=== PATIENT | female | born 1965 | race Caucasian/White ===

== ENCOUNTER 2020-04-08 19:57 | Observation (INO) ==
[2020-04-08] MEDS ORDERED: Naloxone 0.4 MG/ML INJ IVP PRN (21:24)
[2020-04-08] MEDS ORDERED: Ondansetron 4 MG/2 ML VIAL IVP PRN (21:24)
[2020-04-08] MEDS ORDERED: D5% in Water 1,000 ML IVC PRN (21:32)
[2020-04-08] MEDS ORDERED: *HR* Dextrose 50 % in Water (Vial) 50 ML VIAL IVP PRN (21:32)
[2020-04-08] MEDS ORDERED: Dextrose Gel 15 GM/37.5 ML TUBE PO PRN ×2 (21:32)
[2020-04-09] MEDS: Insulin LISPRO 300 UNITS/3 ML VIAL SUBQ SCH ×4 (00:17→17:49)
[2020-04-09 01:49] LABS: Basophils % 0.4 %; Eosinophils # 0.2 K/mcL (0.0-0.6); Eosinophils % 2.5 %; Hematocrit 38.4 % (35.3-44.9); Hemoglobin 12.6 g/dL (11.5-15.4); Immature Granulocytes % 0.3 % (0-4); Lymphocytes # 3.1 K/mcL (0.6-4.6); Lymphocytes % 39.8 %; Mean Corpuscular HGB Conc 32.8 g/dL (31.6-35.5); Mean Corpuscular Hemoglobin 29.9 pg (28.0-33.3); Mean Corpuscular Volume 91.2 fL (83.0-100.0); Mean Platelet Volume 10.8 fL (9.4-12.4); Monocytes # 0.5 K/mcL (0.0-1.3); Monocytes % 6.7 %; Platelet Count 186 K/mcL (140-400); Red Blood Count 4.21 M/mcL (3.82-4.97); Red Cell Distribution Width 11.9 % (11.5-14.5); Segmented Neutrophils % 50.3 %; White Blood Count 7.9 K/mcL (4.3-11.1)
[2020-04-09 02:21] LABS: Thyroid Stimulating Hormone 14.964 mcIU/mL (0.340-5.600)
[2020-04-09 02:26] LABS: Chol/HDL Ratio 4.5 (0-4.9); Magnesium 1.8 mg/dL (1.6-2.6)
[2020-04-09] MEDS ORDERED: Regadenoson 0.4 MG/5 ML SYRINGE IVP ONE (06:23)
[2020-04-09] MEDS: atenoloL 50 MG TABLET PO SCH (12:10)
[2020-04-09] MEDS ORDERED: Insulin LISPRO 300 UNITS/3 ML VIAL SUBQ SCH (21:00)
[2020-04-09] MEDS ORDERED: Insulin DETEMIR 100 UNIT/ML X5UNITS SUBQ SCH (21:00)
[2020-04-10] MEDS: Insulin LISPRO 300 UNITS/3 ML VIAL SUBQ SCH ×2 (04:57→05:08)
[2020-04-10 06:43] VITALS: BP 117/70
[2020-04-10] MEDS: atenoloL 50 MG TABLET PO SCH (07:21)
== END 2020-04-10 10:52 | disposition home or self-care (01) ==
LOC: 3BNU → SUATTDRO 21:08
PROVIDERS: ADMIT Family Medicine; ATTEND Internal Medicine